=== PATIENT | female | born 1995 | race Caucasian/White ===

== ENCOUNTER → 2019-08-08 | Outpatient (CLI) | payer BC | END | disposition home or self-care (01) | LOC: LABWHC1 12:59 | PROVIDERS: ATTEND Obstetrics & Gynecology | DX: O20.0 Threatened abortion (principal); Z3A.00 Weeks of gestation of pregnancy not specified | CPT/HCPCS: 36415; 84702; 86850; 86900; 86901 ==

== ENCOUNTER → 2019-08-10 | Outpatient (CLI) | payer BC | END | disposition home or self-care (01) | LOC: LABWHC1 14:00 | PROVIDERS: ATTEND Obstetrics & Gynecology | DX: O20.0 Threatened abortion (principal) | CPT/HCPCS: 36415; 84702 ==

== ENCOUNTER → 2019-09-04 | Outpatient (CLI) | payer BC ==
[2019-09-04 20:07] LABS: T4, Free (Free Thyroxine) 1.2 ng/dL (0.80-1.80)
== END | disposition home or self-care (01) ==
LOC: LABWHC1 13:19
PROVIDERS: ATTEND Obstetrics & Gynecology
DX: O03.9 Complete or unspecified spontaneous abortion without complication (principal)
CPT/HCPCS: 36415; 84439; 84443; 84481; 84702; 86376